=== PATIENT | male | born 1965 | race Hispanic/Latino ===

== ENCOUNTER 2019-08-15 02:06 | Inpatient (IN) | payer SELFPAY ==
[2019-08-15] MEDS ORDERED: Fentanyl 100 MCG/2 ML VIAL ONE ×2 (02:46→16:09)
[2019-08-15] MEDS ORDERED: Ondansetron PF 4 MG/2 ML Vial ONE ×2 (02:47→21:24)
[2019-08-15 02:53] LABS: #Eosinphils 0.2 thou/uL (0.0-0.7); #Lymphocytes 1.2 thou/uL (1.20-3.40); #Monocytes 0.5 thou/uL (0.11-0.59); #Neutrophils 3.8 thou/uL (1.40-6.50); %Basophils 0.6 % (0.0-1.0); %Eosinophils 3.2 % (0.0-10.0); %Lymphocytes 20.6 % (21.0-51.0); %Monocytes 8.7 % (0.0-10.0); %Neutrophils 66.9 % (42.0-75.0); Hemoglobin 13.7 g/dL (14.0-18.0); Mean Corpuscular HGB CONC 33.7 g/dL (32.0-36.0); Mean Corpuscular Hemoglobin 29.3 pg (27.0-31.0); Mean Platelet Volume 8.8 fL (7.4-10.4); Platelet Count 97 thou/uL (130-400); Red Blood Cell (RBC) Count 4.66 mill/uL (4.70-6.10); White Blood Cell (WBC) Count 5.7 thou/uL (4.8-10.8)
[2019-08-15 03:13] LABS: ALT (SGPT) 196 U/L (8-55); AST (SGOT) 193 U/L (5-34); Albumin 3.4 g/dL (3.5-5.0); Alkaline Phosphatase 141 U/L (40-150); Anion Gap 10 mmol/L (10-20); BUN (Urea Nitrogen) 14 mg/dL (8.4-25.7); Bilirubin, Total 4.3 mg/dL (0.2-1.2); Calc. Creatinine Clearance 0 mL/min (70-130); Carbon Dioxide 26 mmol/L (22-29); Chloride 103 mmol/L (98-107); Estimated GFR-MDRD Greater than 90; Globulin 4.8 g/dL (2.4-3.5); Glucose 145 mg/dL (70-105); Lipase 46 U/L (8-78); Potassium 3.6 mmol/L (3.5-5.1); Protein, Total 8.2 g/dL (6.0-8.3); Sodium 135 mmol/L (136-145)
[2019-08-15] MEDS ORDERED: Cefepime 2 GM VIAL ONE (03:36)
[2019-08-15] MEDS ORDERED: Sodium Chloride 0.9% 100 ML ONE (03:39)
[2019-08-15] MEDS ORDERED: Ondansetron PF 4 MG/2 ML Vial IVP PRN ×2 (04:25→17:04)
[2019-08-15] MEDS ORDERED: Ondansetron ODT 4 MG TAB SL PRN (04:25)
[2019-08-15 04:31] VITALS: BMI 30.7
[2019-08-15] MEDS: Lactated Ringer's 1,000 ML IV SCH ×3 (04:58→19:26)
[2019-08-15] MEDS: Fentanyl 100 MCG/2 ML VIAL SLOW IVP PRN ×3 (05:01→10:33)
--- NOTE | 2019-08-15 07:42 | ULT ---
PRELIMINARY REPORT/[facility]/EMERGENCY AFTER HOURS PROCEDURE PROCEDURE INFORMATION: Exam: US Abdomen Limited, Right Upper Quadrant Exam date and time: 08/15/2019 3:03 AM Clinical history: 53 years old, male; Nausea and vomiting; Abdominal pain; Epigastric TECHNIQUE: Imaging protocol: Real-time ultrasound of the abdomen with image documentation. Examination was focused on the right upper quadrant. COMPARISON: No relevant prior studies available. FINDINGS: Liver: Hepatic steatosis. Gallbladder: Cholelithiasis and gallbladder sludge. Gallbladder is distended. Portions of the gallbladder wall appeared mildly thickened. Suggestion of trace pericholecystic fluid. Sonographic Elliott's sign reported as positive. Common bile duct: Common bile duct is at the upper limits of normal to mildly dilated for patient age at 7.6 mm. Pancreas: Visualized pancreas is unremarkable. Right kidney: Normal. No mass. No hydronephrosis. IMPRESSION: 1. Cholelithiasis and gallbladder sludge. Distended gallbladder with mild wall thickening and trace pericholecystic fluid in the setting a positive sonographic Elliott sign, compatible with acute cholecystitis. 2. Common bile duct is at the upper limits of normal to mildly dilated for patient age at 7.6 mm. Thank you for allowing us to participate in the care of your patient. Dictated and Authenticated by: Sam Adams MD 08/15/2019 3:34 AM Central Time ([place] & [place]) FINAL REPORT SONOGRAM RIGHT UPPER QUADRANT PERFORMED ON AN EMERGENCY BASIS: Date: 08/15/19 Time: 0305 hours HISTORY: Nausea and vomiting. Right upper quadrant pain. FINDINGS: Agree with the preliminary report by Dr. Adams from [facility]. The overdistended gallbladder contains m ultiple shadowing stones. Small amount of pericholecystic fluid. Findings overall are evidence of acute cholecystitis. Common bile duct also mildly dilated. Code QA. Transcribed Date/Time: 08/15/2019 7:50 AM
[2019-08-15] MEDS ORDERED: PROVENTIL INHALER 6.7 G (200 INHALATIONS) INH PRN (09:59)
[2019-08-15 11:16] LABS: ALT (SGPT) 188 U/L (8-55); AST (SGOT) 178 U/L (5-34); Albumin 3.2 g/dL (3.5-5.0); Alkaline Phosphatase 149 U/L (40-150); Bilirubin, Direct 3.7 mg/dL (0.1-0.3); Bilirubin, Total 4.9 mg/dL (0.2-1.2); Protein, Total 7.7 g/dL (6.0-8.3)
[2019-08-15] MEDS: Cefepime 2 GM in Sodium Chloride 0.9% 100 ML IVPB SCH ×2 (12:27→23:02)
--- NOTE | 2019-08-15 12:37 | CON ---
DATE OF CONSULTATION: 08/15/2019 REASON FOR CONSULTATION: Elevated liver enzymes and dilated bile duct with gallstones. HISTORY OF PRESENT ILLNESS: Mr. Bolanos is a 53-year-old gentleman, who states he became ill yesterday morning with right upper quadrant pain that something he has never had in the past. It was nonradiating, associated with some nausea, vomiting, and chills, but no overt fever. He ultimately came to the emergency room at around 3 this morning and had an ultrasound that showed gallbladder sludge, gallstones, and a 7 mm bile duct. He states the pain is persistent in the right upper quadrant. He denies any prior history of liver disease. He does drink about a 6-pack of beer per day. Dr. Brumfield informed me that he possibly had a prior history of hepatitis C and seen Dr. Romero, but he does not recall that. He reports he has no other medical problems. PAST MEDICAL HISTORY: None per the patient. However, review of the medical records indicate in 2014, he was seen for elevated liver enzymes and cholelithiasis as well and in this hospital for cellulitis. At that time, he was found to have fatty liver and hepatitis C genotype 2 with positive viral load. History of cellulitis left leg in 2013. History of knee surgery, scope in the past. Asthma. ALLERGIES: PENICILLIN. MEDICATIONS: At home, ProAir. Medications here, he has received Zofran, fentanyl, normal saline 1 L, and cefepime in the emergency room 2 g. Present medications here, albuterol p.r.n. normal saline 100 an hour, Zofran p.r.n. SOCIAL HISTORY: He drinks alcohol 6-pack per day. He used to do cocaine many years ago, not now. Does smoke. FAMILY HISTORY: Negative for liver disease. Negative for colorectal cancer. REVIEW OF SYSTEMS: Negative for chest pain, shortness of breath, dyspnea on exertion, cardiac disease. PHYSICAL EXAMINATION: VITAL SIGNS: Temperature is 98.7. He has been afebrile since admission. Pulse 62, blood pressure 163/95. GENERAL: He is mildly icteric. LUNGS: Clear. HEART: Regular rate rhythm without murmurs. ABDOMEN: Soft. There is tenderness in right upper quadrant. There is fullness in the right upper quadrant and a large liver. There is no shifting dullness or fluid wave. EXTREMITIES: No clubbing, cyanosis, or edema. SKIN: Without stigmata of chronic liver disease such as palmar erythema or spider angiomata. LABORATORY STUDIES: Sodium 135, potassium 3.6, BUN and creatinine 14 and 0.8, glucose 145. Bilirubin is 4.3. AST and ALT are 193 and 196. They are very similar to previous admissions. Albumin is 4.8, globulin is 0.7, total protein is 8.2, troponin is 0.032. Lactic acid 1, calcium 9, lipase 46. White count 5.6, hemoglobin 13.7, platelet count 97. INR 1.1. ASSESSMENT: 1. Possible choledocholithiasis. He has ultrasound with a 7 mm bile duct by report, previously noted cholelithiasis. 2. Enlarged liver with hepatitis C. He has a low platelet count. He probably has some portal hypertension. He could have early cirrhosis. RECOMMENDATIONS: 1. We would continue antibiotics for possible cholelithiasis, for a possible mild cholecystitis. 2. The patient needs to get an alpha-fetoprotein done. 3. We will repeat liver function tests later today. If the patient's LFTs are coming down, he can have a lap gretel. If not, he is going to need an ERCP first. Job ID: [id number]
[2019-08-15] MEDS ORDERED: Iothalamate Meglumine 60% 50 ML VIAL FS ONE (14:34)
[2019-08-15] MEDS ORDERED: Indomethacin 50 MG SUPP ONE (14:41)
[2019-08-15] MEDS ORDERED: Promethazine HCl 25 MG/ML VIAL IM PRN ×2 (17:04→17:12)
[2019-08-15] MEDS ORDERED: Calcium Carbonate 500 MG ChewTAB PO PRN (17:04)
[2019-08-15] MEDS ORDERED: Dextrose 50% Abboject 50 ML SYRINGE SLOW IVP PRN (17:04)
[2019-08-15] MEDS ORDERED: hydrALAZINE 20 MG/ML VIAL SLOW IVP PRN (17:04)
[2019-08-15] MEDS ORDERED: Dextrose 5% in Water 1,000 ML IV PRN (17:04)
[2019-08-15] MEDS ORDERED: Mag-Al 1200 mg/1200 mg/30 ML UDCUP PO PRN (17:04)
[2019-08-15] MEDS ORDERED: PACU-Morphine 4MG/ML VIAL SLOW IVP PRN (17:12)
[2019-08-15] MEDS ORDERED: Promethazine HCl 25 MG/ML VIAL SLOW IVP PRN (17:12)
[2019-08-15] MEDS ORDERED: HYDROmorphone 2 MG/ML VIAL SLOW IVP PRN (17:12)
[2019-08-15] MEDS ORDERED: Ondansetron HCl/PF 4 MG/2 ML Vial IVP PRN (17:12)
--- NOTE | 2019-08-15 17:13 | RAD ---
EXAM: INTRAOPERATIVE FLUOROSCOPY: 08/15/19 HISTORY: ERCP. FINDINGS: Four intraoperative fluoroscopic views demonstrate retrograde opacification of the common bile duct a nd intrahepatic biliary system. No persistent filling defect. No evidence of ductal dilatation. IMPRESSION: Intraoperative fluoroscopy as above. POS: UMBERTO
[2019-08-15] MEDS ORDERED: Famotidine 20 MG TAB PO SCH (21:00)
[2019-08-15] MEDS ORDERED: Famotidine/PF 20 mg/2ml Vial SLOW IVP SCH (21:00)
[2019-08-15] MEDS ORDERED: Dexamethasone 20 MG/5 ML VIAL ONE (21:24)
[2019-08-15] MEDS ORDERED: PHENYLEPHRINE-NS 100 MCG/ML 10 ML SYRINGE ONE (21:24)
[2019-08-15] MEDS ORDERED: Rocuronium Bromide 10 MG/ML (10ML VIAL) ONE (21:24)
[2019-08-15] MEDS ORDERED: Lidocaine 1% PF 5 ML VIAL ONE (21:24)
[2019-08-15] MEDS ORDERED: ePHEDrine 50 MG/ML VIAL ONE (21:24)
[2019-08-15] MEDS ORDERED: Glycopyrrolate 0.2 MG/ML 5 ML SYRINGE ONE (21:24)
[2019-08-15] MEDS ORDERED: PROPOFOL 200 MG/20 ML VIAL ONE (21:24)
[2019-08-15] MEDS: Multivitamins, Adult 10 ML, Folic Acid 1 MG, Thiamine HCl 100 MG in Dextrose 5 %-0.45 %... IV SCH (21:25)
[2019-08-15] MEDS: Pantoprazole 40 MG VIAL IVP SCH (21:25)
[2019-08-15] MEDS: Morphine 2 MG/ML SYRINGE SLOW IVP PRN (21:37)
--- NOTE | 2019-08-15 22:28 | HP ---
CHIEF COMPLAINT: Abdominal pain, abnormal liver function tests, dilated bile duct. HISTORY OF PRESENT ILLNESS: Mr. Bolanos is a 53-year-old male. He became ill yesterday morning and presented to the hospital after midnight last night. He underwent evaluation in the emergency room with laboratory and radiologic studies. His CBC was normal with a white blood cell count of 5.7 and hemoglobin of 13.7. His platelet count was slightly low at 97. Chemistry profile revealed normal electrolytes, however, his bilirubin was elevated at 4.3, and his transaminases were 193 and 196. Alkaline phosphatase was normal. Lipase was normal. Albumin was depressed at 3.4. Gallbladder ultrasound was obtained revealing cholelithiasis with mild thickening of gallbladder wall. Common bile duct was felt to be dilated between 7 and 8 mm. He was admitted to my service. Because of the potential for choledocholithiasis, Gastroenterology was consulted. It is noted from review of his previous records that he was admitted to this facility in 2014 with cellulitis of his ankle. At that time, it was noted that he had transaminitis. He underwent serology testing and was found to have hepatitis C, who is hepatitis C positive. He also had gallbladder ultrasound that showed cholelithiasis at that time. He was seen in consultation by Dr. Romero. He was not felt to have any symptoms associated with his gallbladder and outpatient followup with Dr. Romero was recommended for treatment of his hepatitis C. He apparently never followed up with Dr. Romero. His mother is at bedside and insists that he was treated for hepatitis C in [place], however, the patient has no recollection of this. It was recommended by Dr. Romero in 2015 that the patient to abstain from all alcohol. It is noted that the patient still drinks a six pack of beer per day. PAST MEDICAL HISTORY: Significant for hepatitis C and cholelithiasis, as well as history of cellulitis of his ankle. PAST SURGICAL HISTORY: Left knee arthroscopy. MEDICATIONS: ProAir inhaler. ALLERGIES: PENICILLIN. PERSONAL AND SOCIAL HISTORY: He lives with his parents. He drinks a six-pack of beer per day. He states that he formally did use cocaine, but no longer does. He smokes about a half pack per day of cigarettes. He is not , but does have two children. 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 REVIEW OF SYSTEMS: Otherwise unremarkable. FAMILY HISTORY: Noncontributory. PHYSICAL EXAMINATION: VITAL SIGNS: His temperature is 98.0, pulse 78, blood pressure 153/82. GENERAL: He is a well-developed, well-nourished male. He is about 6 feet 1 inch tall and weighs 230 pounds. He is alert and oriented x3. HEAD, EYES, EARS, NOSE, AND THROAT: Unremarkable. NECK: Supple. LUNGS: Clear to auscultation throughout. CARDIAC: Regular rate and rhythm without murmur. ABDOMEN: Moderately obese. It is soft. He has tenderness in the right upper quadrant to palpation. EXTREMITIES: Unremarkable. LABORATORY DATA: As mentioned, his liver function tests were elevated upon arrival. Review shows that his transaminases were in the 100s back in 2014 as well. His bilirubin however was previously normal. It is noted that his bilirubin today went up from 4.3 at 2:30 this morning up to 4.9 at 10:30 this morning. ASSESSMENT: The patient with cholelithiasis and possible choledocholithiasis. Dr. Bob has already seen the patient and is proceeding with ERCP. Following this, he will require a laparoscopic cholecystectomy. I will tentatively plan to proceed with this tomorrow. I have discussed the operation in detail with the patient, as well as potential risks. This could be additionally risky because of his fatty liver and possible cirrhosis related both to his alcoholism and his hepatitis C. I have discussed this with the patient, who understands and agrees to proceed. Job ID: [id number]
[2019-08-16] MEDS: Lactated Ringer's 1,000 ML IV SCH ×2 (05:08→18:45)
[2019-08-16 05:27] LABS: #Lymphocytes 0.8 thou/uL (1.20-3.40); #Monocytes 0.2 thou/uL (0.11-0.59); #Neutrophils 2.7 thou/uL (1.40-6.50); %Eosinophils 0.4 % (0.0-10.0); %Lymphocytes 21.8 % (21.0-51.0); %Monocytes 6.2 % (0.0-10.0); %Neutrophils 71.6 % (42.0-75.0); Hemoglobin 12.4 g/dL (14.0-18.0); Mean Corpuscular HGB CONC 33.3 g/dL (32.0-36.0); Mean Corpuscular Hemoglobin 29.2 pg (27.0-31.0); Mean Corpuscular Volume 87.6 fL (78.0-98.0); Mean Platelet Volume 9.1 fL (7.4-10.4); Platelet Count 89 thou/uL (130-400); RBC Distribution Width 12.8 % (11.5-14.5); Red Blood Cell (RBC) Count 4.26 mill/uL (4.70-6.10); White Blood Cell (WBC) Count 3.8 thou/uL (4.8-10.8)
[2019-08-16 06:04] LABS: ALT (SGPT) 162 U/L (8-55); AST (SGOT) 139 U/L (5-34); Albumin 2.9 g/dL (3.5-5.0); Alkaline Phosphatase 150 U/L (40-110); Anion Gap 8 mmol/L (10-20); BUN (Urea Nitrogen) 11 mg/dL (8.4-25.7); Calc. Creatinine Clearance 155 mL/min (70-130); Calcium 8.5 mg/dL (7.8-10.44); Carbon Dioxide 25 mmol/L (22-29); Chloride 102 mmol/L (98-107); Estimated GFR-MDRD Greater than 90; Globulin 4.4 g/dL (2.4-3.5); Glucose 123 mg/dL (70-105); Lipase 65 U/L (8-78); Potassium 4.3 mmol/L (3.5-5.1); Protein, Total 7.3 g/dL (6.0-8.3); Sodium 131 mmol/L (136-145)
--- NOTE | 2019-08-16 08:36 | OP ---
DATE OF PROCEDURE: 08/15/2019 PROCEDURES PERFORMED: Endoscopic retrograde cholangiopancreatography with sphincterotomy and esophagogastroduodenoscopy with control of hemorrhage from a duodenal ulcer separate from the above noted procedure. PREPROCEDURE DIAGNOSES: 1. Elevated liver enzymes, dilated bile duct on ultrasound and gallstones concerning for choledocholithiasis. 2. Right upper quadrant pain. 3. History of alcohol abuse. 4. Prior history of hepatitis C. 5. New elevation of bilirubin, not noted on previous evaluations. POSTPROCEDURE DIAGNOSES: 1. Duodenal ulcer was noted in the pyloric channel on the anterior wall of the pyloric channel bulb junction. There was a visible vessel with active bleeding. This was cauterized with 7-Maldivian heater probe and bleeding was controlled. On talking with the family after the procedure, they noted that he actually had been throwing up some blood recently, which he denied actually on presentation to 3 different physicians. 2. Ampulla appeared normal. Cholangiogram showed a normal 6-mm bile duct with no filling defects. 3. Intrahepatic ductal tree is sparse and there is a paucity of radicles consistent with some chronic liver disease. 4. With no overt common bile duct stone, it is either possible he has already passed one or that his elevated bilirubin and LFTs are related more to alcoholic liver disease than biliary tract disease. ANESTHESIA: General anesthesia. The patient is on cefepime and received penicillin prophylaxis. RECOMMENDATIONS: 1. Hold off lap gretel tomorrow. 2. Follow LFTs. 3. Obtain HIDA scan. This may be incomplete secondary to sphincterotomy. Start IV PPI. Start banana bag and monitor. My fear is that if he has alcoholic hepatitis, laparoscopic cholecystectomy cause hepatic decompensation and failure. DESCRIPTION OF PROCEDURE: The patient was informed of the risks, benefits, and possible complications of endoscopy including perforation, reaction to medication, and aspiration. Informed consent was obtained. The patient was brought to endoscopy suite, where he was sedated in gradual fashion. Once he was comfortable, he was intubated. He was placed in prone position on the fluoroscopy table. The side-viewing duodenoscope was advanced to the esophagus, stomach, and the duodenum and duodenal bulb. There was some blood noted and a defect consistent with an ulcer. We passed this as there was no overt severe hemorrhage and performed ERCP intubating the ampulla, and with the guidewire twice in the pancreatic duct by no injections, we then redirected and cannulated the common bile duct with a wire. Cholangiogram revealed no filling defects. There was a paucity of intrahepatic ducts consistent with pruning and probable cirrhosis or severe liver disease. No filling defects were noted, although there was concern for possible small 1 distally. Sphincterotomy was performed. The duct was swept 3 times, no stones being removed, there was good hemostasis from the sphincterotomy. There was no filling defects noted. There was no stone seen coming through and occlusion cholangiogram was negative. Attempts to fill the gallbladder were unsuccessful. The scope was then removed and placed a forward viewing scope, guided in the anterior part of the duodenal bulb, there was also a visible vessel. This was cauterized with 10-Maldivian heater probe and ablated. There were no other ulcers or lesions in the stomach. Retroflexed views revealed no evidence of varices. The esophagus showed no evidence of varices or other lesions. There was mild portal hypertensive gastropathy. The scope was removed. The patient tolerated procedure well with no complications. The above findings were discussed with Dr. Brumfield and the patient's family, and appropriate orders were made. We are going to hold off on the lap gretel for now and observe. Job ID: [id number]
[2019-08-16] MEDS ORDERED: diphenhydrAMINE 50 MG/ML VIAL ONE ×2 (09:33→09:40)
[2019-08-16] MEDS: Pantoprazole 40 MG VIAL IVP SCH (09:42)
[2019-08-16 10:00] LABS: INR-International Normal Ratio 1.2; Prothrombin Time 14.7 SEC (12.0-14.7)
--- NOTE | 2019-08-16 10:01 | MRI ---
MRI OF THE ABDOMEN WITHOUT AND WITH CONTRAST: Date: 08/16/19 COMPARISON: Gallbladder ultrasound dated 08/15/19 and ERCP dated 08/15/19. HISTORY: Cholelithiasis. Elevated AFP and LFTs. Right upper quadrant abdominal pain. TECHNIQUE: Multiplanar, multisequence MR images were obtained of the abdomen without and with contrast. FINDINGS: There are filling defects in the dependent gallbladder which likely represent gallstones. There is fl uid surrounding the gallbladder. There is low signal intensity in the nondependent gallbladder which may represent air within the gallbladder. These findings are consistent with acute cholecystitis. There is a wedge-shaped area of high T2 signal in the liver measuring approximately 7.2 cm in greates t dimension. This is superior to the gallbladder and extends up to the dome. In the center of this ar ea of high T2 signal, there is a mass which also demonstrates high T2 signal measuring 3.5 cm in size . After administration of contrast, this mass appears to demonstrate enhancement with washout on francis yed phase images. There are small subcentimeter foci of high T2 signal in the bilateral kidneys consistent with simple cysts. The adrenal glands, spleen, and pancreas are unremarkable. No abdominal adenopathy is seen. IMPRESSION: 1. Cholelithiasis with findings concerning for acute cholecystitis. 2. There is a mass in the anterior liver near the dome which demonstrates washout and is concerning for hepatocellular carcinoma. 3. Bilateral renal cysts. CODE T. POS: TPC
[2019-08-16] MEDS ORDERED: Fentanyl 100 MCG/2 ML VIAL ONE (11:20)
[2019-08-16] MEDS: Cefepime 2 GM in Sodium Chloride 0.9% 100 ML IVPB SCH ×2 (11:48→23:09)
--- NOTE | 2019-08-16 17:09 | NM ---
HEPATOBILIARY SCAN: 08/16/19 COMPARISON: MRI abdomen 08/16/19. HISTORY: Evaluate for acute cholecystitis. Findings are suspicious for acute cholecystitis on MRI and ultrasound. TECHNIQUE: A hepatobiliary scan was performed after administration of 4.9 millicuries of technetium 99m Mebrofen in. FINDINGS: Prompt uptake of the radiopharmaceutical by the liver is seen. There is a photopenic region in the mi d portion of the liver which may correspond to the abnormality on MRI. Biliary and gallbladder activ ity within 20 minutes. Bowel activity is seen within 30 minutes. IMPRESSION: 1. No evidence of acute cholecystitis. 2. Area of photopenia in the liver may correspond to the MRI abnormality. POS: TPC
[2019-08-16] MEDS: Multivitamins, Adult 10 ML, Folic Acid 1 MG, Thiamine HCl 100 MG in Dextrose 5 %-0.45 %... IV SCH (18:46)
--- NOTE | 2019-08-16 18:47 | PRG ---
DATE OF SERVICE: 08/16/2019 SUBJECTIVE: Mr. Bolanos says he is feeling a lot better today. Abdominal discomfort is minimal. No nausea. He has remained n.p.o. HIDA scan showed no abnormality of gallbladder filling. MRI unfortunately does appear to confirm a single focus of hepatocellular carcinoma. I had a long discussion with the patient about this today. OBJECTIVE: VITAL SIGNS: Temperature 98.2, pulse 71, blood pressure 130/82, 96% oxygen saturation on room air. GENERAL: No acute distress. HEART: Regular rate and rhythm. LUNGS: Clear to auscultation bilaterally. ABDOMEN: Bowel sounds are present. Some mild tenderness to the epigastrium, right upper quadrant, but no guarding or rebound tenderness. EXTREMITIES: No peripheral edema. VESSELS: Radial pulses 2+ bilaterally. LABORATORY STUDIES: WBC 3.8, hemoglobin 12.4, platelets 89. INR is 1.2. Sodium 131, potassium 4.3, BUN 11, creatinine 0.83, total bilirubin down from 4.9 to 3.0, alkaline phosphatase is 150, AST down from 178 to 139, ALT down from 188 to 162. Lipase only 65. AST is elevated to 763. IMAGING STUDIES: HIDA scan showed no evidence of acute cholecystitis. There is an area of photopenia in the liver corresponding to his MRI abnormality. MRI of the abdomen from earlier today demonstrates a mass in the anterior liver near the dome which demonstrates washout, concerning for hepatocellular carcinoma. It is wedge-shaped area measuring 7.2 cm in greatest dimension, but in the center of this area there is a mass which also demonstrates high T2 signal measuring 3.5 cm in size. There is enhancement with washout on delayed phase images. ASSESSMENT/PLAN: 1. Hepatocellular carcinoma, new diagnosis based on elevated AFP and characteristic MRI findings. I discussed with the patient that this finding is likely incidental to his presentation, but is certainly significant and needs to be followed up. The MRI findings and AFP level are enough to confirm the diagnosis. Liver biopsy should not be needed. This HCC arises in the background of cirrhosis, which appears to be secondary to chronic hepatitis C and alcohol abuse. The cirrhosis is otherwise fairly well compensated. We will consult Oncology for their opinion and assistance in management. I discussed with the patient that he would probably best be served at a tertiary center that performs liver transplantation, for multi-disciplinary care including interventional radiology. This could be set up on an outpatient basis. One potential barrier is the patient's uninsured status, though evidently his insurance with his job kicks in next month. He lives in [place], but says he would probably like to be referred to a center in the [place] area. 2. History of hepatitis C. He had genotype two diagnosed back in 2014. He reports having been treated in the [place] with antiviral therapy for several months, but unable to follow up after that. HCV RNA level is pending, which will hopefully confirm sustained virologic response. 3. Alcohol abuse. This has been ongoing. I strongly advised the patient that he needs to completely quit all alcohol. This is likely the reason for this severity of his LFT elevation, which is significantly improved over the past day. 4. Duodenal ulcer. This was demonstrated on ERCP with Dr. Bob yesterday. The patient is going to need to continue pantoprazole 40 mg twice daily for at least the next 2-3 months, then back off to once daily dosing thereafter. 5. Cholelithiasis. The patient's HIDA scan does not demonstrate evidence of acute cholecystitis. Possibly the patient's pain presentation had more to do with his duodenal ulcer. Dr. Brumfield is following. If the patient continues to do well symptomatically through tomorrow, LFTs have not worsened, and satisfactory plan for oncology followup arranged, could potentially be discharged home tomorrow from a GI perspective. Please call anytime with questions or concerns. Job ID: [id number]
[2019-08-16] MEDS: Morphine 2 MG/ML SYRINGE SLOW IVP PRN (18:53)
[2019-08-17] MEDS: Lactated Ringer's 1,000 ML IV SCH ×2 (01:54→11:32)
[2019-08-17] MEDS: Morphine 2 MG/ML SYRINGE SLOW IVP PRN ×3 (01:56→15:03)
--- NOTE | 2019-08-17 11:43 | PRG ---
DATE OF SERVICE: 08/17/2019 SUBJECTIVE: Mr. Bolanos is hospital day #2. He underwent ERCP per Dr. Bob yesterday revealing no choledocholithiasis. This morning (08/15), he had an MRI that revealed findings consistent with hepatocellular carcinoma. His AFP is very elevated at 763. Today, he denies any abdominal pain. He is hungry more than anything else. Labs from today reveal that his bilirubin has dropped from 4.9 down to 3.0. Transaminases have dropped a little bit as well. Lipase is normal. His CBC shows his white blood cell count has dropped from 5.7 down to 3.8. His differential is unremarkable and his platelet count has dropped from 97 down to 89. PHYSICAL EXAMINATION: VITAL SIGNS: He is afebrile. Pulse is 80 and blood pressure is 130/82. LUNGS: Clear to auscultation. ABDOMEN: Soft with no focus of tenderness in any location. ASSESSMENT: The patient with presentation with elevated bilirubin level and cholelithiasis and known hepatitis C and known alcoholism, who now has findings consistent with hepatocellular carcinoma. I will order a HIDA scan for today (08/16). If this is negative for cholecystitis, then I will probably defer his cholecystectomy at this time. I have discussed his case in detail with Dr. Romero, who is assuming it from a GI standpoint. Job ID: [id number]
[2019-08-17] MEDS: Cefepime 2 GM in Sodium Chloride 0.9% 100 ML IVPB SCH (11:49)
--- NOTE | 2019-08-17 14:09 | CON ---
DATE OF CONSULTATION: REASON FOR CONSULT: Hepatocellular carcinoma. HISTORY OF PRESENT ILLNESS: Mr. Bolanos is a 53-year-old male with a history of hepatitis C and alcohol use, who presented to the emergency room with complaints of abdominal pain. He was noted to have a bilirubin elevated at 4.3. He had a gallbladder ultrasound done, revealed cholelithiasis. He underwent ERCP with improvement of his bilirubin currently at 3. He had an abdominal MRI performed, which showed a mass measuring 3.5 cm in the liver. An AFP was elevated at 763 diagnostic for hepatocellular carcinoma. The patient denies any complaints at this time. He is hungry. His abdominal pain is controlled. PAST MEDICAL HISTORY: 1. Hepatitis C. 2. Cholelithiasis. 3. Cellulitis. PAST SURGICAL HISTORY: Left knee arthroscopy. HOME MEDICATIONS: Inhaler. ALLERGIES: TO PENICILLIN. FAMILY HISTORY: No known history of liver cancer. SOCIAL HISTORY: Single, lives with his parents. Works in [place] in the [employer]. Six-pack of beer daily. Half pack of cigarettes daily. REVIEW OF SYSTEMS: A 10-point review of systems is negative except for noted in HPI. PHYSICAL EXAMINATION: VITAL SIGNS: Temperature is 98.2, pulse is 78, respiratory rate 16, BP is 166/96. He is 99% on room air. GENERAL: This is well-developed, well-nourished male, in no acute distress. HEENT: Normocephalic and atraumatic. Pupils are equal and reactive to light. Sclerae mildly icteric. NECK: Supple. CV: Regular rate and rhythm. LUNGS: Clear. ABDOMEN: Soft and nontender. Bowel sounds are positive. EXTREMITIES: No clubbing or cyanosis. SKIN: No rash. HEMATOLOGIC: No petechiae or purpura. NEUROLOGIC: Nonfocal. PERTINENT LABS AND X-RAYS: Current WBCs are 3.8, hemoglobin 12.4, hematocrit 37.4, platelet count is 89,000, he has 71% neutrophils and 21% lymphocytes. PT is 14.7, INR is 1.2, and PTT is 34. Sodium is 131, potassium 4.3, chloride 102, CO2 is 25, BUN is 11, creatinine 0.83, calcium is 8.5, bilirubin is 3, AST is 139, ALT is 162, alkaline phosphatase is 150, serum total protein is 7.3, albumin 2.9, globulin 4.4, AST is 763. Radiology per HPI. ASSESSMENT: Hepatocellular carcinoma. DISCUSSION: The patient's incidental findings on CT scan with the elevated AFP are consistent with primary liver cancer. There appears to be no evidence of any further disease on MRI. I would recommend referral to a liver specialist for discussion of treatment options. I believe Dr. Romero is working on getting him to Dr. Kim at [facility] in [place]. The patient was instructed to stop alcohol use and he can follow up with us for chemotherapy options if required. Thank you for the consult. Job ID: [id number]
--- NOTE | 2019-08-17 15:33 | PRG ---
DATE OF SERVICE: 08/17/2019 SUBJECTIVE: Mr. Bolanos is feeling a lot better. He is able to tolerate dinner last night and breakfast and lunch today, only minimal abdominal discomfort. No nausea or vomiting. He is up and to be able to go home today. OBJECTIVE: VITAL SIGNS: Temperature 98.2, pulse 78, blood pressure 166/96, 99% oxygen saturation on room air. GENERAL: No acute distress. HEART: Regular rate and rhythm. LUNGS: Clear to auscultation bilaterally. ABDOMEN: Soft. Nontender to palpation. EXTREMITIES: No peripheral edema. ASSESSMENT AND PLAN: 1. Hepatocellular carcinoma, new diagnosis based on elevated AFP and characteristic MRI findings. This HCC rises in the background of cirrhosis, which appears to be secondary to chronic hepatitis C and alcohol abuse. The cirrhosis is otherwise fairly well compensated. Appreciate Oncology opinion. We are going to start the process of getting him referred to a liver transplant center for further evaluation and treatment. We will attempt a referral to [facility]. Potential barrier may be the patient's current uninsured status. We will also have him follow up with me in the office in the next few weeks. 2. Cirrhosis. 3. Elevated liver function tests. We had a long discussion about his alcohol use. He feels very motivated to completely quit all alcohol use going forward. 4. Prior diagnosis of hepatitis C. Still awaiting HCV RNA titer, which will hopefully confirm sustained virologic response as he reports having undergone treatment in [place] within the past few years. 5. Duodenal ulcer. Upon discharge, the patient needs to continue on pantoprazole 40 mg twice daily for the foreseeable future. GI will sign off and plan for outpatient followup. Please call anytime with questions or concerns. Job ID: [id number]
[2019-08-17 16:16] VITALS: BP 151/101; TEMP 98.1
[2019-08-18 10:11] LABS: HCV log10 5.267 (.); Hep C PCR-Quant 185000 IU/mL (.)
--- NOTE | 2019-08-18 10:49 | PQF ---
RAMONA WALDRON MD [id number] CLINICAL DOCUMENTATION CLARIFICATION FORM: POST DISCHARGE Addendum to original discharge summary date: ____ Late entry note date: __ DATE: 08-18-2019 ATTN:Ramona Maxwell Please exercise your independent, professional judgment in responding to the clarification form. Clinical indicators are provided on the bottom of this form for your review Can you please specify the etiology of patients abdominal pain. Please check the appropriate box. [ ] doudenal ulcer [ ] Liver cell carcinoma [ ] cholelithiasis [ ] abdominal pain unspecified [ ] other diagnosis please specify: [ x ] unable to determine Present on Admission (POA): [ x ] Yes [ ] No [ ] Unable to determine For continuity of documentation, please document condition throughout progress notes and discharge summary. Thank You. CLINICAL INDICATORS: HP 08/[address] Brumfield abdominal pain, abnormal liver function test, dilated bile duct HP 08/[address] Brumfield galbladder ultrasound revealing cholelithiasis PN 08/[address] Romero hepatocellular carcinoma, new diagnosis based on elevated AFP and characteristics MRI findings PN 08/[address] Bob doudenal ulcer was noted in the pyloric channel on the anterior wall with active bleeding RISK FACTORS: HP 08/15 Dr. Brumfield- History hepatitis C Op note 08/15- Portal HTN TREATMENTS: PN 08/17- Counseling to stop alcohol use HP -Gastroenterology consult Imaging 07/15- abdominal ultrasound Imaging 07/16- MRI abdomen 08/15 op note- ERCP with EGD and control of bleeding (This form is maintained as a part of the permanent medical record) 2014 [employer]. All Rights Reserved [email or web address] [not provided] This patient had all of the issues mentioned above. Unable to determine what caused his pain on admission. The only diagnosis on admission was cholelithiasis. the ulcer and cancer were found during the course of his hospitalization. RYDER
--- NOTE | 2019-08-18 14:21 | DIS ---
DATE OF ADMISSION: 08/15/2019 DATE OF DISCHARGE: 08/17/2019 ADMISSION DIAGNOSIS: Cholelithiasis with suspected cholecystitis with possible choledocholithiasis. DISCHARGE DIAGNOSES: Cholelithiasis with probable cirrhosis/portal hypertension, new diagnosis of hepatocellular carcinoma, and new diagnosis of duodenal ulcer, without evidence of choledocholithiasis. OPERATIONS/PROCEDURES PERFORMED: ERCP per Dr. Bob on August 15. ADMISSION HISTORY: The patient is a 53-year-old male. He had actually presented to the hospital in 2014 for an unrelated problem and at that time was recognized to have hepatitis C. He never followed up with his lay out helper here and he believes he followed up with a lay out helper in either [place] or the [place], where it is possible that he underwent treatment for his hepatitis C, but it does not seem that anyone is sure about this. When he presented, he had abdominal pain and ultrasound revealed cholelithiasis. His admission studies revealed that his platelet count was low in the 90s and his transaminases were elevated in the 190s. His albumin was depressed at admission at 3.4. His coagulation profile was normal. He never had leukocytosis or left shift. His bilirubin was elevated at 4.3 and along with the sonographic finding of a slightly dilated common bile duct (8 mm), Gastroenterology consultation was obtained for ERCP. Dr. Bob performed his ERCP with a finding of nondilated duct with no evidence of choledocholithiasis. He incidentally found a duodenal ulcer, which he cauterized. Other laboratory studies during his admission revealed that he had a markedly elevated alpha-fetoprotein level of 763 (upper limit of normal is 9). Abdominal MRI was ordered per Dr. Bob revealing a 3.5 cm abnormality within the liver consistent with hepatocellular carcinoma, which would be consistent with his AFP elevation. As it was uncertain whether his gallbladder was source of his discomfort at all, I ordered a HIDA scan which was normal and showed gallbladder filling. It was decided at that time not to proceed with cholecystectomy. The patient was seen in consultation by Oncology. Parag Romero, the patient's lay out helper, was attempting to obtain consultation for the patient to be seen by a supervisor border department in [place] for consideration of treatment of the hepatocellular carcinoma versus transplantation. The patient had a history of drinking at least a 6-pack of beer per day for the past several years. At this point, it has been recommended that he have complete alcohol cessation. Further studies were being done to evaluate whether he still had a hepatitis viral load. Outpatient followup will be arranged with Dr. Romero and Oncology will see him as necessary depending upon whether chemotherapy is felt to be necessary at this point. The patient also understands that if he continues to have recurrent symptoms of right upper quadrant pain with his diagnosis of cholelithiasis, that he may require a laparoscopic cholecystectomy but at this point, that could potentially be deferred until further evaluation or treatment of his liver cancer occurs. Finally, it is uncertain what exactly was the cause of admission discomfort, whether it was his gallbladder or possibly his ulcer or possibly some manifestation of his cancer or underlying liver disease. I will be happy to see him in the future as needed. The patient was discharged home with a prescription for proton pump inhibitor. Job ID: [id number]
== END 2019-08-17 18:22 | disposition home or self-care (01) | DRG 347 ==
LOC: ERS 02:06 → SURG B 04:17
PROVIDERS: ADMIT Specialist; ATTEND Specialist
PROC: 0W3P7ZZ Control Bleeding in Gastrointestinal Tract, Via Natural or Artificial Opening (ICD-10-PCS; principal; 2019-08-15)
PROC: 0FJB8ZZ Inspection of Hepatobiliary Duct, Via Natural or Artificial Opening Endoscopic (ICD-10-PCS; 2019-08-15)
DX: R10.9 Unspecified abdominal pain (principal); K26.4 Chronic or unspecified duodenal ulcer with hemorrhage; K76.6 Portal hypertension; C22.0 Liver cell carcinoma; F10.288 Alcohol dependence with other alcohol-induced disorder; K80.20 Calculus of gallbladder without cholecystitis without obstruction; F17.210 Nicotine dependence, cigarettes, uncomplicated; J45.909 Unspecified asthma, uncomplicated; K31.89 Other diseases of stomach and duodenum; K70.30 Alcoholic cirrhosis of liver without ascites; B18.2 Chronic viral hepatitis C; Z88.0 Allergy status to penicillin
CPT/HCPCS: 36415; 74183; 74330; 76705; 78226; 80053; 82105; 83605; 83690; 84484; 85025; 85610; 85730; 87040; 87522; 93005; 96361; 96365; 96375; 99406; A9537; C9113; J0692; J1100; J1200; J1610; J1956; J2001; J2270; J2405; J2704; J3010; J3411; J3490; J7042

== ENCOUNTER 2020-01-04 17:47 | Emergency (ER) | payer SELFPAY ==
[2020-01-04 19:08] LABS: Hemoglobin 11.5 g/dL (14.0-18.0); Mean Corpuscular HGB CONC 32.8 g/dL (32.0-36.0); Mean Corpuscular Hemoglobin 28.4 pg (27.0-31.0); Mean Corpuscular Volume 86.5 fL (78.0-98.0); Mean Platelet Volume 8.7 fL (7.4-10.4); Platelet Count 204 thou/uL (130-400); RBC Distribution Width 16.1 % (11.5-14.5); Red Blood Cell (RBC) Count 4.06 mill/uL (4.70-6.10); White Blood Cell (WBC) Count 5.7 thou/uL (4.8-10.8)
[2020-01-04 19:28] LABS: Bilirubin Negative (Negative); Blood, Urine Negative (Negative); Clarity Clear (Clear); Glucose, Urine (Dipstick) Normal (Negative); Leukocyte Negative Leu/uL (Negative); Nitrite Negative (Negative); Protein, Urine (Dipstick) 10 mg/dL (Neg-Trace); Urobilinogen 3 mg/dL (Less than 2)
[2020-01-04 19:29] LABS: ALT (SGPT) 247 U/L (8-55); AST (SGOT) 220 U/L (5-34); Albumin 2.8 g/dL (3.5-5.0); Alkaline Phosphatase 150 U/L (40-110); Anion Gap 9 mmol/L (10-20); BUN (Urea Nitrogen) 10 mg/dL (8.4-25.7); Bilirubin, Total 0.8 mg/dL (0.2-1.2); Calc. Creatinine Clearance 0 mL/min (70-130); Calcium 8.1 mg/dL (7.8-10.44); Carbon Dioxide 22 mmol/L (22-29); Chloride 108 mmol/L (98-107); Estimated GFR-MDRD Greater than 90; Globulin 4.5 g/dL (2.4-3.5); Glucose 98 mg/dL (70-105); Potassium 3.9 mmol/L (3.5-5.1); Protein, Total 7.3 g/dL (6.0-8.3); Sodium 135 mmol/L (136-145)
[2020-01-04 19:33] LABS: Band 14 % (5-11); Lymphocytes 15 % (21-51); MDiff Complete? YES; Monocytes 19 % (0-10); Neutrophil 41 % (42-75); Platelet Morphology Comment Appears Adequate; Polychromasia SLIGHT = 2-3 cells (100X) (0-2/hpf); Reactive Lymphocytes 11 % (0-10)
--- NOTE | 2020-01-04 19:39 | RAD ---
Chest AP view INDICATION: History of bile duct cancer COMPARISON: June 07, 2009 FINDINGS: Lungs: The lungs are clear Cardiac silhouette: The cardiomediastinal silhouette appears within normal limits. Pulmonary vasculature: Normal Pleural spaces: No pleural effusion or pneumothorax is demonstrated. Upper abdomen: No abnormality seen. Osseous structures: No acute osseous abnormality. Additional findings: Right IJ chest wall port IMPRESSION: No acute cardiopulmonary abnormality.
[2020-01-04 19:47] LABS: INR-International Normal Ratio 1.1; PTT 33.2 SEC (22.9-36.1); Prothrombin Time 13.8 SEC (12.0-14.7)
--- NOTE | 2020-01-04 20:20 | RAD ---
FOUR VIEWS RIGHT ELBOW: 01/04/20 HISTORY: Right elbow pain after injury. COMPARISON: None. 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 There is a small osseous excrescence seen i nvolving the volar and medial aspect of the distal right humeral diaphysis most suggestive of an oste ochondroma. No acute fracture or dislocation is seen involving the right elbow. IMPRESSION: No acute osseous abnormality. POS: VERONICA
[2020-01-04] MEDS ORDERED: Acetaminophen/Codeine 30-300mg Tablet ONE (21:16)
== END 2020-01-04 21:20 | disposition home or self-care (01) ==
LOC: ERS 17:47
DX: R53.1 Weakness (principal); R10.811 Right upper quadrant abdominal tenderness; J45.909 Unspecified asthma, uncomplicated; F17.210 Nicotine dependence, cigarettes, uncomplicated; Z79.51 Long term (current) use of inhaled steroids
CPT/HCPCS: 36415; 71045; 80053; 81003; 83605; 83880; 85025; 85610; 85730; 87040

== ENCOUNTER 2020-02-17 17:00 | Inpatient (IN) | payer OTHER ==
[2020-02-17 18:03] LABS: #Lymphocytes 0.7 thou/uL (1.20-3.40); #Monocytes 0.3 thou/uL (0.11-0.59); #Neutrophils 1.4 thou/uL (1.40-6.50); %Basophils 0.5 % (0.0-1.0); %Eosinophils 0.4 % (0.0-10.0); %Lymphocytes 28.4 % (21.0-51.0); %Neutrophils 59.7 % (42.0-75.0); Hemoglobin 9.2 g/dL (14.0-18.0); Large Platelets SLIGHT; MDiff Complete? YES; Mean Corpuscular Hemoglobin 31.9 pg (27.0-31.0); Mean Corpuscular Volume 96.5 fL (78.0-98.0); Mean Platelet Volume 11.6 fL (7.4-10.4); Ovalocytes SLIGHT = 2-5 cells (100X) (0-1/hpf); Platelet Count 72 thou/uL (130-400); Platelet Morphology Comment Appears Decreased; Polychromasia MODERATE = 3-4 cells (100X) (0-2/hpf); RBC Distribution Width 16.8 % (11.5-14.5); Red Blood Cell (RBC) Count 2.88 mill/uL (4.70-6.10); Tear Drops SLIGHT = 2-5 cells (100X) (0-1/hpf); White Blood Cell (WBC) Count 2.3 thou/uL (4.8-10.8)
--- NOTE | 2020-02-17 18:06 | RAD ---
XR Chest 1 View Portable History: Abdominal pain and distention Comparison: Chest radiograph December 2019 Findings: There are patchy opacities both lower lobes. No pneumothorax. Nodular density left lung bas e. Cardiac silhouette and basal contours are similar. Impression: 1. Patchy opacities both lung bases may reflect early atypical pneumonia versus atelectasis. Repeat r adiograph with full inspiration recommended. 2. Nodular density left lung base. Nonemergent follow-up CT chest may be beneficial.
[2020-02-17] MEDS ORDERED: Morphine 4 MG/ML VIAL ONE (18:12)
[2020-02-17 18:16] LABS: ALT (SGPT) 141 U/L (8-55); AST (SGOT) 202 U/L (5-34); Alkaline Phosphatase 146 U/L (40-110); Anion Gap 13 mmol/L (10-20); BUN (Urea Nitrogen) 9 mg/dL (8.4-25.7); Bilirubin, Total 2.4 mg/dL (0.2-1.2); Calc. Creatinine Clearance 0 mL/min (70-130); Carbon Dioxide 19 mmol/L (22-29); Chloride 99 mmol/L (98-107); Estimated GFR-MDRD Greater than 90; Globulin 4.9 g/dL (2.4-3.5); Glucose 213 mg/dL (70-105); Lipase 46 U/L (8-78); Magnesium 1.4 mg/dL (1.6-2.6); Potassium 3.8 mmol/L (3.5-5.1); Protein, Total 6.9 g/dL (6.0-8.3); Sodium 127 mmol/L (136-145)
[2020-02-17] MEDS ORDERED: Ibuprofen 800 MG TAB ONE (18:42)
[2020-02-17 18:49] LABS: Bacteria/HPF None Seen HPF (None Seen); Bilirubin 1+ (Negative); Blood, Urine Trace (Negative); Clarity Clear (Clear); Glucose, Urine (Dipstick) Normal (Negative); Leukocyte Negative Leu/uL (Negative); Nitrite Negative (Negative); Protein, Urine (Dipstick) 30 mg/dL (Neg-Trace); Squamous Epithelial 0-3 HPF (0-3); Urobilinogen 12 mg/dL (Less than 2); WBC/HPF 0-3 HPF (0-3)
[2020-02-17] MEDS ORDERED: Cefepime 2 GM VIAL ONE (19:17)
[2020-02-17] MEDS ORDERED: Vancomycin 1.5 GRAM/300 ML BAG 1.5 GM in Premix Bag 1 BAG IVPB SCH (19:30)
--- NOTE | 2020-02-17 19:54 | RAD ---
XR Abdomen 2 View History: Progressive abdominal distention Comparison: None. Findings: Cholelithiasis is present. No dilated air-filled loops of large or small bowel. No free air is appreciated. Impression: 1. No evidence for bowel obstruction. 2. Cholelithiasis.
[2020-02-17] MEDS ORDERED: Ondansetron PF 4 MG/2 ML Vial ONE (19:55)
[2020-02-17 20:33] LABS: Lactic Acid 1.2 mmol/L (0.5-2.2)
[2020-02-18] MEDS ORDERED: Ondansetron PF 4 MG/2 ML Vial IVP PRN (00:07)
[2020-02-18] MEDS ORDERED: Acetaminophen 325 MG TAB PO PRN (00:07)
[2020-02-18] MEDS ORDERED: Magnesium 2 GM/50 ML 2 GM in Premix Bag 1 BAG IVPB SCH (00:45)
--- NOTE | 2020-02-18 01:07 | HP ---
CHIEF COMPLAINT: Abdominal pain and weakness. HISTORY OF PRESENT ILLNESS: Mr. Bolanos is a 54-year-old male with past medical history of cholangiocarcinoma, on chemotherapy, asthma, presents to the emergency room with abdominal pain and weakness. On workup in the emergency room, the patient was febrile with temperature as high as 103, and the patient was found to be leukopenic, neutropenic, hyponatremic, elevated LFTs and bilirubin, hypomagnesemic. Imaging studies showed patchy opacities in both lung bases, which may reflect early atypical pneumonia. Septic workup done in the ED. The patient also had elevated lactic acid, but after IV fluid hydration, repeat lactic acid is 1.2. The patient is started on empiric IV antibiotics. The patient is being admitted to the hospital for further management. PAST MEDICAL HISTORY: As mentioned above in the history of present illness. PAST SURGICAL HISTORY: 1. Knee surgery. 2. Tonsillectomy. SOCIAL HISTORY: The patient smokes cigarettes daily. He is denying alcohol use at this time. FAMILY HISTORY: Includes cancer and coronary artery disease. ALLERGIES: ALLERGIC TO PENICILLINS AND GADOLINIUM. HOME MEDICATIONS: Please see home medication reconciliation form for updated medications. REVIEW OF SYSTEMS: Review of 14 systems negative except what is mentioned in history of present illness. PHYSICAL EXAMINATION: GENERAL: The patient is awake, alert, in moderate distress. VITAL SIGNS: Temperature maximum 103, respiratory rate is 20, oxygen saturation 98%, blood pressure is 100/55. HEAD AND NECK: Normocephalic, atraumatic. NECK: Supple. CHEST: Decreased air entry bilaterally. HEART: S1, S2. Regular. ABDOMEN: Distended, epigastric tenderness. Bowel sounds present. NEUROLOGIC: Awake, alert, and oriented x3. No focal deficits. PSYCH: Unable to assess. EXTREMITIES: No clubbing, no cyanosis. GENITOURINARY: No suprapubic tenderness. No flank tenderness. LABORATORY DATA: Chest x-ray as mentioned above in history of present illness. Labs, magnesium is 1.4, sodium 127, glucose 213, and bilirubin 2.4. Sodium 127. WBC count is 2.3, platelet count 72, hemoglobin 9.2. Lactic acid 3.6, repeat lactic acid 1.2. ASSESSMENT AND PLAN: 1. Sepsis. 2. Pneumonia ?? 3. Neutropenia. 4. Immunocompromised, on chemotherapy. 5. Cholangiocarcinoma. 6. Hypomagnesemia. 7. Hyponatremia. 8. Transaminitis. 9. Hyperglycemia. 10. Asthma. PLAN: 1. Admit. 2. Septic workup including blood cultures. 3. Viral panel was done in the ED. 4. Isolation precautions. 5. Cautious IV fluid hydration, reassess in a.m. 6. Monitor and correct electrolytes. 7. Consider Oncology and Infectious Disease consultation in the a.m. 8. Reconcile home medications. 9. DVT prophylaxis as appropriate. 10. Expected length of stay, 2 midnights or more. Job ID: [id number]
[2020-02-18] MEDS: Sodium Chloride 0.9% 1,000 ML IV SCH ×3 (04:53→21:38)
[2020-02-18] MEDS: Azithromycin 500 MG in Sodium Chloride 0.9% 250 ML 250 ML IVPB SCH (04:53)
[2020-02-18 04:56] LABS: INR-International Normal Ratio 1.8; Prothrombin Time 20.4 SEC (12.0-14.7)
[2020-02-18 05:07] LABS: Band 20 % (5-11); Lymphocytes 23 % (21-51); MDiff Complete? YES; Mean Corpuscular HGB CONC 32.7 g/dL (32.0-36.0); Mean Corpuscular Hemoglobin 31.6 pg (27.0-31.0); Mean Corpuscular Volume 96.8 fL (78.0-98.0); Monocytes 16 % (0-10); Neutrophil 41 % (42-75); Platelet Count 66 thou/uL (130-400); Platelet Morphology Comment Appears Decreased; RBC Distribution Width 16.3 % (11.5-14.5); Red Blood Cell (RBC) Count 2.53 mill/uL (4.70-6.10); White Blood Cell (WBC) Count 3.1 thou/uL (4.8-10.8)
[2020-02-18 06:00] LABS: Actual Bicarbonate (HCO3a) 20.1 mEq/L (22-28); Base Excess (BEa) -4.8 mEq/L (-2.0 to +3.0); CO2 Tension 36.1 mmHg (35.0-45.0); Calcium, Ionized 1.06 mmol/L (1.12-1.30); Carboxyhemoglobin (COHb) 1.7 gm% (0.0-3.0); Hemoglobin (Hb) 9.7 g/dL (14.0-18.0); O2 Tension (PaO2) 91.8 mmHg (80.0-100.0); Potassium - ABG Lab 3.28 mmol/L (3.70-5.30); pH, Arterial 7.36 (7.35-7.45)
[2020-02-18] MEDS ORDERED: Vancomycin 1.5 GRAM/300 ML BAG 1.5 GM in Premix Bag 1 BAG IVPB SCH (06:00)
[2020-02-18 06:01] LABS: ALV-art Gradient 12.805 (0-20); Puncture Site RRA
[2020-02-18] MEDS: Cefepime 2 GM in Sodium Chloride 0.9% 100 ML IVPB SCH ×2 (08:46→20:32)
[2020-02-18] MEDS ORDERED: Vancomycin 1 GM in Premix Bag 1 BAG IVPB SCH (09:00)
[2020-02-18] MEDS ORDERED: Famotidine/PF 20 mg/2ml Vial SLOW IVP SCH (09:00)
[2020-02-18] MEDS: Vancomycin 1.5 GRAM/300 ML BAG 1.5 GM in Premix Bag 1 BAG IVPB SCH ×2 (10:36→17:38)
--- NOTE | 2020-02-18 15:14 | PDOC.HOSPP ---
- Subjective Encounter Date: 02/18/20 Encounter Time: 15:10 Subjective: f/u for sepsis and COVID-19 r/o currently receiving Cefepime/Vancomycin for suspected PNA. Pt feeling much better overall and no fever reported. - Objective Vital Signs & Weight: Vital Signs (12 hours) Temp Pulse Resp BP Pulse Ox 02/18/20 11:56 97.7 F 72 18 109/74 02/18/20 08:00 98.1 F 69 18 112/71 02/18/20 04:00 97.9 F 65 18 104/63 100 02/18/20 03:52 100 Weight Weight 256 lb 14.4 oz I&O: 02/17/20 02/18/20 02/19/20 06:59 06:59 06:59 Intake Total 313 Balance 313 Result Diagrams: 02/18/20 04:37 02/17/20 17:16 Additional Labs: Microbiology 02/17/20 18:23 Nasal swab Influenza Types A,B Direct EIA - Final 02/17/20 18:21 Urine voided Urine Culture - Preliminary NO GROWTH AT 12 HOURS 02/17/20 17:16 Venous blood - Right Hand Blood Culture - Preliminary Specimen has been received and culture in progress. No Growth to date. 02/17/20 17:16 Venous blood - Left Hand Blood Culture - Preliminary Specimen has been received and culture in progress. No Growth to date. Laboratory Tests 01/04/20 02/17/20 02/17/20 18:53 17:16 17:16 WBC 2.3 L Hgb 9.2 L Plt Count 72 L Neutrophils % (Manual) Band Neuts % (Manual) PT INR Sodium 135 L Lactic Acid 3.6 H Magnesium Total Bilirubin AST ALT Alkaline Phosphatase Lipase 02/17/20 02/17/20 02/18/20 17:16 20:09 04:37 WBC Hgb Plt Count Neutrophils % (Manual) 41 L Band Neuts % (Manual) 20 H PT INR Sodium Lactic Acid 1.2 Magnesium 1.4 L Total Bilirubin 2.4 H AST 202 H ALT 141 H Alkaline Phosphatase 146 H Lipase 46 02/18/20 04:37 WBC Hgb Plt Count Neutrophils % (Manual) Band Neuts % (Manual) PT 20.4 H INR 1.8 Sodium Lactic Acid Magnesium Total Bilirubin AST ALT Alkaline Phosphatase Lipase Radiology Reviewed by me: Yes (PCXR - patchy opacities in bilat galeas) EKG Reviewed by me: Yes (Tele - ) Hospitalist ROS - Medication Medications: Active Medications Generic Name Dose Route Start Last Admin Trade Name Alfredito PRN Reason Stop Dose Admin Famotidine 20 mg 02/18/20 09:00 02/18/20 08:46 Pepcid SLOW IVP 20 mg Q12HR PRAVEEN Administration Cefepime HCl 2 gm/ Sodium 100 mls @ 200 mls/hr 02/18/20 08:00 02/18/20 08:46 Chloride IVPB 100 mls 0800,2000 PRAVEEN Administration Azithromycin 500 mg/ Sodium 250 mls @ 250 mls/hr 02/18/20 00:15 02/18/20 04: 53 Chloride IVPB 250 mls Q24HR PRAVEEN Administration Sodium Chloride 1,000 mls @ 75 mls/hr 02/18/20 00:15 02/18/20 04:53 Normal Saline 0.9% IV Not Given .[id number] PRAVEEN Vancomycin HCl 1.5 gm/ Device 300 mls @ 200 mls/hr 02/18/20 08:00 02/18/20 10 :36 IVPB 300 mls 0800,1600,2359 PRAVEEN Administration - Exam General Appearance: NAD Eye: PERRL, anicteric sclera ENT: normocephalic atraumatic, no oropharyngeal lesions Neck: supple, symmetric, no JVD, no thyromegaly Heart: RRR, no murmur, no gallops, no rubs, normal peripheral pulses Heart - other findings: S1, S2 Respiratory: normal chest expansion, no tachypnea Respiratory - other findings: diminished in bases, occasional wheeze Gastrointestinal: soft, normal bowel sounds, distended Gastrointestinal - other findings: mild TTP Extremities: no cyanosis, no clubbing, no edema Skin: normal turgor, no lesions Neurological: cranial nerve grossly intact, no new deficit Musculoskeletal: normal tone, normal strength, no muscle wasting Psychiatric: normal affect, A&O x 3 Hosp A/P (1) Sepsis due to pneumonia Code(s): J18.9 - PNEUMONIA, UNSPECIFIED ORGANISM; A41.9 - SEPSIS, UNSPECIFIED ORGANISM Status: Acute Plan: Improved, continue Cefepime/Vancomycin and de-escalate coverage in the next 24h (2) Cholangiocarcinoma Code(s): C22.1 - INTRAHEPATIC BILE DUCT CARCINOMA Status: Chronic Plan: Continue outpt chemotherapy per medical oncology (3) Immunosuppressed due to chemotherapy Code(s): Z79.899 - OTHER GROUP HOME (CURRENT) DRUG THERAPY Status: Chronic (4) Hyponatremia Code(s): E87.1 - HYPO-OSMOLALITY AND HYPONATREMIA Status: Acute Plan: Continue IV NS @ 75ml/h, serial Na+ monitoring (5) Hypomagnesemia Code(s): E83.42 - HYPOMAGNESEMIA Status: Acute Plan: Magnesium supplementation, repeat Mg++ level in am (6) Transaminitis Code(s): R74.0 - NONSPEC ELEV OF LEVELS OF TRANSAMNS & LACTIC ACID DEHYDRGNSE Status: Chronic Plan: Secondary to cholangiocarcinoma, serial monitoring - Plan continue antibiotics, social media project manager, respiratory therapy, DVT proph w/SCDs Stable currently Continue Cefepime/Vancomycin Add Albuterol MDI Continue IVF NS @ 75ml/h COVID-19 r/o pending AM lab: CMP, CBC, Mg++, PO3
[2020-02-18] MEDS ORDERED: Albuterol Sulfate 2.5 mg/3 ml Neb NEB PRN (17:00)
[2020-02-18] MEDS: Dronabinol 2.5 MG CAP PO SCH (17:40)
[2020-02-18] MEDS ORDERED: PROVENTIL INHALER 6.7 G (200 INHALATIONS) INH PRN (19:15)
[2020-02-18] MEDS: Morphine 4 MG/ML VIAL SLOW IVP PRN (20:22)
[2020-02-18] MEDS: Famotidine 20 MG TAB PO SCH (20:33)
[2020-02-18] MEDS: Ibuprofen 200 MG TAB PO PRN (20:42)
[2020-02-18] MEDS ORDERED: Fentanyl 100 MCG/2 ML VIAL SLOW IVP PRN (21:45)
[2020-02-18] MEDS ORDERED: Dicyclomine 10 MG CAP PO PRN (23:46)
[2020-02-18] MEDS ORDERED: Ondansetron ODT 8 MG TAB PO PRN (23:51)
[2020-02-18 23:52] LABS: Vancomycin, Trough 13.9 ug/mL
[2020-02-19] MEDS: Vancomycin 1.5 GRAM/300 ML BAG 1.5 GM in Premix Bag 1 BAG IVPB SCH ×3 (00:01→18:55)
[2020-02-19] MEDS: Morphine 4 MG/ML VIAL SLOW IVP PRN ×2 (02:40→13:06)
[2020-02-19] MEDS: Azithromycin 500 MG in Sodium Chloride 0.9% 250 ML 250 ML IVPB SCH (02:52)
[2020-02-19 05:21] LABS: Phosphorus 2.2 mg/dL (2.3-4.7)
[2020-02-19 05:23] LABS: ALT (SGPT) 103 U/L (8-55); AST (SGOT) 125 U/L (5-34); Albumin 1.7 g/dL (3.5-5.0); Alkaline Phosphatase 115 U/L (40-110); Anion Gap 8 mmol/L (10-20); BUN (Urea Nitrogen) 11 mg/dL (8.4-25.7); Bilirubin, Total 1.6 mg/dL (0.2-1.2); Calc. Creatinine Clearance 174 mL/min (70-130); Carbon Dioxide 21 mmol/L (22-29); Chloride 108 mmol/L (98-107); Estimated GFR-MDRD Greater than 90; Globulin 4.5 g/dL (2.4-3.5); Glucose 154 mg/dL (70-105); Magnesium 1.7 mg/dL (1.6-2.6); Potassium 3.8 mmol/L (3.5-5.1); Protein, Total 6.2 g/dL (6.0-8.3); Sodium 133 mmol/L (136-145)
[2020-02-19 05:25] LABS: Anisocytosis SLIGHT = 6-15 cells (100X) (0-5/hpf); Band 15 % (5-11); Eosinophils 4 % (0-10); Hemoglobin 8.8 g/dL (14.0-18.0); Lymphocytes 28 % (21-51); MDiff Complete? YES; Mean Corpuscular HGB CONC 31.6 g/dL (32.0-36.0); Mean Corpuscular Hemoglobin 31.2 pg (27.0-31.0); Mean Corpuscular Volume 98.9 fL (78.0-98.0); Mean Platelet Volume 8.2 fL (7.4-10.4); Monocytes 12 % (0-10); Neutrophil 41 % (42-75); Platelet Count 58 thou/uL (130-400); Platelet Morphology Comment Appears Decreased; RBC Distribution Width 16.4 % (11.5-14.5); Red Blood Cell (RBC) Count 2.83 mill/uL (4.70-6.10); White Blood Cell (WBC) Count 3.6 thou/uL (4.8-10.8)
--- NOTE | 2020-02-19 09:19 | PDOC.HOSPP ---
- Subjective Encounter Date: 02/19/20 Encounter Time: 09:00 Subjective: f/u for sepsis due to PNA and COVID rule out. Feeling much better overall and minimal coughing. Fever spike last pm but none reported this am. - Objective Vital Signs & Weight: Vital Signs (12 hours) Temp Pulse Resp BP Pulse Ox 02/19/20 07:50 97.8 F 74 16 131/78 99 02/19/20 02:46 98.4 F 71 18 108/68 98 02/18/20 23:11 99.0 F 90 20 123/78 98 02/18/20 21:38 98.9 F Weight Weight 260 lb I&O: 02/18/20 02/19/20 02/20/20 06:59 06:59 06:59 Intake Total 313 3525 Output Total 850 Balance 313 2675 Result Diagrams: 02/19/20 04:49 02/19/20 04:49 Additional Labs: Microbiology 02/17/20 18:23 Nasal swab Influenza Types A,B Direct EIA - Final 02/17/20 18:21 Urine voided Urine Culture - Preliminary NO GROWTH AT 12 HOURS 02/17/20 17:16 Venous blood - Right Hand Blood Culture - Preliminary Specimen has been received and culture in progress. No Growth to date. 02/17/20 17:16 Venous blood - Left Hand Blood Culture - Preliminary Specimen has been received and culture in progress. No Growth to date. Laboratory Tests 01/04/20 02/17/20 02/17/20 18:53 17:16 17:16 WBC 2.3 L Hgb 9.2 L Plt Count 72 L Neutrophils % (Manual) Band Neuts % (Manual) PT INR Sodium 135 L Lactic Acid 3.6 H Phosphorus Magnesium Total Bilirubin AST ALT Alkaline Phosphatase Lipase COVID-19 PCR 02/17/20 02/17/20 02/18/20 17:16 20:09 00:47 WBC Hgb Plt Count Neutrophils % (Manual) Band Neuts % (Manual) PT INR Sodium Lactic Acid 1.2 Phosphorus Magnesium 1.4 L Total Bilirubin 2.4 H AST 202 H ALT 141 H Alkaline Phosphatase 146 H Lipase 46 COVID-19 PCR Not Detected 02/18/20 02/18/20 02/19/20 04:37 04:37 04:49 WBC 3.1 L Hgb 8.0 L Plt Count Neutrophils % (Manual) 41 L Band Neuts % (Manual) 20 H PT 20.4 H INR 1.8 Sodium Lactic Acid Phosphorus Magnesium 1.7 Total Bilirubin 1.6 H AST 125 H ALT 103 H Alkaline Phosphatase 115 H Lipase COVID-19 PCR 02/19/20 02/19/20 04:49 04:49 WBC Hgb Plt Count Neutrophils % (Manual) Band Neuts % (Manual) 15 H PT INR Sodium Lactic Acid Phosphorus 2.2 L Magnesium Total Bilirubin AST ALT Alkaline Phosphatase Lipase COVID-19 PCR EKG Reviewed by me: Yes (Tele - SR) Hospitalist ROS - Medication Medications: Active Medications Generic Name Dose Route Start Last Admin Trade Name Freq PRN Reason Stop Dose Admin Dronabinol 2.5 mg 02/18/20 16:30 02/18/20 17:40 Marinol PO 2.5 mg BID-AC PRAVEEN Administration Famotidine 20 mg 02/18/20 21:00 02/18/20 20:33 Pepcid PO 20 mg BID PRAVEEN Administration Cefepime HCl 2 gm/ Sodium 100 mls @ 200 mls/hr 02/18/20 08:00 02/18/20 20:32 Chloride IVPB 100 mls 0800,2000 PRAVEEN Administration Azithromycin 500 mg/ Sodium 250 mls @ 250 mls/hr 02/18/20 00:15 02/19/20 02: 52 Chloride IVPB 250 mls Q24HR PRAVEEN Administration Sodium Chloride 1,000 mls @ 75 mls/hr 02/18/20 00:15 02/18/20 21:38 Normal Saline 0.9% IV 1,000 mls .[id number] PRAVEEN Administration Vancomycin HCl 1.5 gm/ Device 300 mls @ 200 mls/hr 02/18/20 08:00 02/19/20 00 :01 IVPB 300 mls 0800,1600,2359 PRAVEEN Administration Ibuprofen 200 mg 02/18/20 00:31 02/18/20 20:42 Motrin PO 200 mg Q4H PRN Administration Fever > 101 Morphine Sulfate 4 mg 02/18/20 16:47 02/19/20 02:40 Morphine SLOW IVP 4 mg Q4H PRN Administration Pain - Exam General Appearance: NAD, awake alert Eye: PERRL, anicteric sclera ENT: normocephalic atraumatic, no oropharyngeal lesions Neck: supple, symmetric, no JVD, no thyromegaly, no lymphadenopathy Heart: RRR, no murmur, no gallops, no rubs, normal peripheral pulses Respiratory: CTAB, no wheezes, no rales, normal chest expansion Gastrointestinal: soft, non-tender, non-distended, normal bowel sounds Extremities: no cyanosis, no clubbing, no edema Skin: normal turgor, no lesions Neurological: cranial nerve grossly intact, no new deficit Musculoskeletal: normal tone, normal strength, no muscle wasting Psychiatric: normal affect, A&O x 3 Hosp A/P (1) Sepsis due to pneumonia Code(s): J18.9 - PNEUMONIA, UNSPECIFIED ORGANISM; A41.9 - SEPSIS, UNSPECIFIED ORGANISM Status: Acute Plan: Improved, continue Cefepime/Vancomycin/Zithromax another 24h then de-escalate (2) Cholangiocarcinoma Code(s): C22.1 - INTRAHEPATIC BILE DUCT CARCINOMA Status: Chronic Plan: Resume outpt chemotherapy after d/c (3) Immunosuppressed due to chemotherapy Code(s): Z79.899 - OTHER MANAGER NEONATAL (CURRENT) DRUG THERAPY Status: Chronic (4) Hyponatremia Code(s): E87.1 - HYPO-OSMOLALITY AND HYPONATREMIA Status: Acute Plan: Improved, Mild hyponatremia likely due to cholangiocarcinoma, continue low- volume IVF's (5) Hypomagnesemia Code(s): E83.42 - HYPOMAGNESEMIA Status: Acute Plan: Improved, continue serial monitoring (6) Transaminitis Code(s): R74.0 - NONSPEC ELEV OF LEVELS OF TRANSAMNS & LACTIC ACID DEHYDRGNSE Status: Chronic Plan: Secondary to cholangiocarcinoma, stable trend - Plan continue antibiotics, social and political studies professor, out of bed/ambulate, DVT proph w/SCDs Stable currently Continue Cefepime/Vancomycin/Zithromax Add Albuterol MDI Continue IVF NS @ 75ml/h COVID-19 ruled out Transfer to medical floor AM lab: CMP, CBC, Mg++, PO3 Likely home in am
[2020-02-19] MEDS: Famotidine 20 MG TAB PO SCH ×2 (10:12→21:37)
[2020-02-19] MEDS: Cefepime 2 GM in Sodium Chloride 0.9% 100 ML IVPB SCH ×2 (11:43→21:35)
[2020-02-19] MEDS: Dronabinol 2.5 MG CAP PO SCH ×2 (11:43→17:53)
[2020-02-19] MEDS: Ibuprofen 200 MG TAB PO PRN (11:48)
[2020-02-19 14:15] VITALS: BMI 34.2
[2020-02-20] MEDS: Azithromycin 500 MG in Sodium Chloride 0.9% 250 ML 250 ML IVPB SCH (00:39)
[2020-02-20] MEDS: Vancomycin 1.5 GRAM/300 ML BAG 1.5 GM in Premix Bag 1 BAG IVPB SCH ×2 (02:47→08:30)
[2020-02-20 06:04] LABS: Hemoglobin 8.7 g/dL (14.0-18.0); Mean Corpuscular HGB CONC 32.8 g/dL (32.0-36.0); Mean Corpuscular Hemoglobin 31.6 pg (27.0-31.0); Mean Corpuscular Volume 96.2 fL (78.0-98.0); Mean Platelet Volume 10.8 fL (7.4-10.4); Platelet Count 132 thou/uL (130-400); RBC Distribution Width 16.1 % (11.5-14.5); Red Blood Cell (RBC) Count 2.77 mill/uL (4.70-6.10); White Blood Cell (WBC) Count 3.2 thou/uL (4.8-10.8)
[2020-02-20 06:07] LABS: Band 14 % (5-11); Eosinophils 5 % (0-10); Lymphocytes 19 % (21-51); MDiff Complete? YES; Monocytes 18 % (0-10); Neutrophil 44 % (42-75)
[2020-02-20 07:08] LABS: ALT (SGPT) 117 U/L (8-55); AST (SGOT) 190 U/L (5-34); Albumin 1.7 g/dL (3.5-5.0); Alkaline Phosphatase 139 U/L (40-110); Anion Gap 10 mmol/L (10-20); BUN (Urea Nitrogen) 11 mg/dL (8.4-25.7); Bilirubin, Total 1.7 mg/dL (0.2-1.2); Calc. Creatinine Clearance 198 mL/min (70-130); Calcium 7.4 mg/dL (7.8-10.44); Carbon Dioxide 21 mmol/L (22-29); Chloride 109 mmol/L (98-107); Estimated GFR-MDRD Greater than 90; Globulin 4.9 g/dL (2.4-3.5); Glucose 87 mg/dL (70-105); Magnesium 1.6 mg/dL (1.6-2.6); Phosphorus 2.8 mg/dL (2.3-4.7); Potassium 4.2 mmol/L (3.5-5.1); Protein, Total 6.6 g/dL (6.0-8.3); Sodium 136 mmol/L (136-145)
[2020-02-20] MEDS: Sodium Chloride 0.9% 1,000 ML IV SCH ×2 (08:27→08:31)
[2020-02-20] MEDS: Cefepime 2 GM in Sodium Chloride 0.9% 100 ML IVPB SCH (08:27)
[2020-02-20] MEDS: Famotidine 20 MG TAB PO SCH (08:30)
[2020-02-20] MEDS: Dronabinol 2.5 MG CAP PO SCH (08:32)
[2020-02-20 09:14] LABS: Vancomycin, Trough 17.2 ug/mL
--- NOTE | 2020-02-20 10:24 | DIS ---
DATE OF ADMISSION: 02/18/2020 DATE OF DISCHARGE: 02/20/2020 DISCHARGE DIAGNOSES: 1. Sepsis secondary to community-acquired pneumonia, likely gram-positive cocci, resolving. 2. Cholangiocarcinoma with current chemotherapy. 3. Immunosuppression due to chemotherapy. 4. Hyponatremia, resolved. 5. Hypomagnesemia, resolved. 6. Transaminitis secondary to cholangiocarcinoma. CONSULTATIONS: None. PERTINENT LABORATORY AND X-RAY FINDINGS: Sodium ranged between 127 to 136. Lactic acid level ranged between 1.2 to 3.6. Phosphorus ranged between 2.2 to 2.8. Magnesium ranged between 1.4 to 1.7. Total bilirubin ranged between 1.6 to 2.4. AST ranged between 125 to 202, ALT ranged between 103 to 141. CBC showed a white blood cell count ranged between 2.3 to 3.6, hemoglobin ranged between 8.0 to 9.2. PT 20.4, INR 1.8. COVID-19 PCR negative on 02/18/2020. Blood cultures x2 dated 02/17/2020, showed no growth at 48 hours. Urine culture dated 02/17/2020, showed no growth at 36 hours. Influenza A and B antigen negative on 02/17/2020. Portable chest x-ray dated 02/17/2020, patchy densities in bilateral lung bases. Abdominal radiographs dated 02/17/2020, showed no evidence for bowel obstruction. Cholelithiasis noted. HOSPITAL COURSE: The patient was initially admitted after presenting with abdominal pain and generalized weakness. The patient was also noted febrile with an initial temperature of 103 degrees Fahrenheit. The patient met sepsis criteria in the emergency room and received general sepsis protocol including IV fluid hydration and initiation of broad-spectrum IV antibiotic therapy with cefepime and vancomycin in the context of immunosuppression as the patient is currently on chemotherapy for cholangiocarcinoma. The patient was also placed in initial respiratory isolation due to concern for COVID-19. The patient was subsequently ruled out for the COVID-19 and continued on broad-spectrum IV antibiotic therapy for the remainder of the hospital course. The patient rapidly clinically improved in 48 hours, remaining afebrile with stabilization of metabolic panels. I have examined the patient at the time of discharge and discussed followup instructions. The patient verbalized understanding and in agreement and ready for discharge on 02/20/2020. DISCHARGE MEDICATIONS: 1. Levaquin 750 mg p.o. daily x7 days. 2. Marinol 2.5 mg p.o. b.i.d. 3. Lactobacillus one tablet p.o. daily. 4. Olanzapine 10 mg p.o. at bedtime. 5. Zofran 8 mg p.o. q.8 hours p.r.n. nausea and vomiting. 6. ProAir HFA 2 puffs inhaled q.6 hours p.r.n. FOLLOWUP: The patient may follow up with Dr. Sterling within 7 days of discharge. The patient will follow up with his Medical Oncology Team at [facility] in [place], [place]. CONDITION ON DISCHARGE: Stable. ACTIVITY: Ad-chung. DIET: Regular. CODE STATUS: Full. DISPOSITION: Home on 02/20/2020. TIME SPENT: Total time preparing and coordinating discharge, 31 minutes. Job ID: [id number]
[2020-02-20 10:56] VITALS: BP 126/80; TEMP 98.3
== END 2020-02-20 11:11 | disposition home or self-care (01) | DRG 871 ==
LOC: ERS 17:00 → EEVIPCON 02-18 00:23 → 2SW 02-18 00:23 → T4-B 02-19 21:13
PROVIDERS: ADMIT Internal Medicine; ATTEND Internal Medicine
DX: A41.9 Sepsis, unspecified organism (principal); J18.9 Pneumonia, unspecified organism; C22.1 Intrahepatic bile duct carcinoma; E87.1 Hypo-osmolality and hyponatremia; E83.42 Hypomagnesemia; J45.909 Unspecified asthma, uncomplicated; F17.210 Nicotine dependence, cigarettes, uncomplicated; R73.9 Hyperglycemia, unspecified; R74.0 Nonspecific elevation of levels of transaminase and lactic acid dehydrogenase [LDH]; Z88.0 Allergy status to penicillin; Z88.8 Allergy status to other drugs, medicaments and biological substances
CPT/HCPCS: 36415; 71045; 74019; 80053; 80202; 81003; 81015; 82805; 83605; 83690; 83735; 84100; 85007; 85025; 85027; 85610; 87040; 87086; 87804; 93005; 94760; 96365; 96366; 96367; 96375; J0456; J0692; J1956; J2270; J2405; J3010; J3475; J3490; J7050; Q0167; S0028; U0001

== ENCOUNTER 2020-02-24 18:33 | Observation (INO) | payer OTHER ==
[2020-02-24 19:22] LABS: #Basophils 0.1 thou/uL (0.0-0.2); #Eosinphils 0.2 thou/uL (0.0-0.7); #Lymphocytes 1.5 thou/uL (1.20-3.40); #Monocytes 0.8 thou/uL (0.11-0.59); #Neutrophils 3.3 thou/uL (1.40-6.50); %Eosinophils 3.7 % (0.0-10.0); %Lymphocytes 25.6 % (21.0-51.0); %Monocytes 13.5 % (0.0-10.0); %Neutrophils 56.2 % (42.0-75.0); Mean Corpuscular HGB CONC 32.1 g/dL (32.0-36.0); Mean Corpuscular Hemoglobin 31.2 pg (27.0-31.0); Mean Corpuscular Volume 97.3 fL (78.0-98.0); Mean Platelet Volume 10.2 fL (7.4-10.4); Platelet Count 155 thou/uL (130-400); RBC Distribution Width 15.9 % (11.5-14.5); Red Blood Cell (RBC) Count 2.87 mill/uL (4.70-6.10); White Blood Cell (WBC) Count 5.9 thou/uL (4.8-10.8)
[2020-02-24 19:43] LABS: ALT (SGPT) 121 U/L (8-55); AST (SGOT) 258 U/L (5-34); Albumin 1.6 g/dL (3.5-5.0); Alkaline Phosphatase 169 U/L (40-110); Anion Gap 9 mmol/L (10-20); BUN (Urea Nitrogen) 14 mg/dL (8.4-25.7); Bilirubin, Total 1.7 mg/dL (0.2-1.2); CK (CPK) 90 U/L (30-200); Calc. Creatinine Clearance 0 mL/min (70-130); Calcium 7.6 mg/dL (7.8-10.44); Carbon Dioxide 24 mmol/L (22-29); Chloride 106 mmol/L (98-107); Estimated GFR-MDRD 88; Globulin 5.4 g/dL (2.4-3.5); Glucose 99 mg/dL (70-105); Sodium 135 mmol/L (136-145)
--- NOTE | 2020-02-24 19:48 | RAD ---
PORTABLE CHEST: 02/24/20 HISTORY: Swelling. Shortness of breath. COMPARISON: 02/17/20 exam. Heart size is slightly enlarged. Right sided Mediport catheter is present. The lungs are clear of inf iltrates. IMPRESSION: Mild cardiomegaly. No signs of failure. POS: JAE
[2020-02-24 20:05] LABS: CKMB 1.6 ng/mL (0-6.6)
[2020-02-24 20:20] LABS: Bilirubin 1+ (Negative); Blood, Urine Negative (Negative); Clarity Turbid (Clear); Glucose, Urine (Dipstick) Normal (Negative); Leukocyte Negative Leu/uL (Negative); Nitrite Negative (Negative); Protein, Urine (Dipstick) 50 mg/dL (Neg-Trace)
[2020-02-24 20:21] LABS: RBC/HPF 0-3 HPF (0-3); Squamous Epithelial 0-3 HPF (0-3)
[2020-02-24 20:25] LABS: Bacteria/HPF 1+ HPF (None Seen)
[2020-02-24 20:26] LABS: Mucous/LPF 3+ LPF (<2+)
[2020-02-24] MEDS ORDERED: PROVENTIL INHALER 6.7 G (200 INHALATIONS) INH PRN (20:48)
[2020-02-24] MEDS ORDERED: Furosemide 20 MG/2 ML VIAL SLOW IVP SCH (21:00)
[2020-02-24] MEDS ORDERED: Aspirin Chewable 81 MG TAB ONE (21:00)
--- NOTE | 2020-02-24 21:06 | HP ---
CHIEF COMPLAINT: Leg swelling. HISTORY OF PRESENT ILLNESS: Mr. Bolanos is a 54-year-old male with past medical history of cholangiocarcinoma, on chemotherapy, presents to the emergency room with worsening bilateral leg swelling and shortness of breath. The patient was just recently discharged from the hospital last week after being treated for sepsis and possible pneumonia. The patient denies fever, chills, chest pain, nausea, vomiting, or diarrhea. Workup in the emergency room, the patient had indeterminate troponin of 0.06, mildly elevated BNP of 155. Shows transaminitis, albumin is low. Clinically, patient had significant bilateral leg swelling. The patient is being admitted to hospital for further management. PAST MEDICAL HISTORY: 1. Cholangiocarcinoma. 2. Asthma. PAST SURGICAL HISTORY: 1. Right knee surgery. 2. Tonsillectomy. FAMILY HISTORY: Reviewed and noncontributory. SOCIAL HISTORY: The patient use medical cannabis. Denies alcohol use. Smokes cigarettes daily. HOME MEDICATIONS: Please see home medication reconciliation form for updated medications. ALLERGIES: THE PATIENT IS ALLERGIC TO PENICILLIN. REVIEW OF SYSTEMS: Review of 14 systems negative except what is mentioned in history of present illness. PHYSICAL EXAMINATION: GENERAL: The patient is awake, alert, in mild distress. VITAL SIGNS: Blood pressure is 129/75, pulse is 87, respiratory rate is 14, oxygen saturation is 99% on room air. HEAD AND NECK: Normocephalic, atraumatic. Neck is supple. No JVD. CHEST: Decreased air entry bilaterally. HEART: S1, S2. Regular. ABDOMEN: Soft, nontender. Bowel sounds present. NEUROLOGIC: Awake, alert, and oriented x3. PSYCHIATRIC: Normal mood. EXTREMITIES: 3+ edema. GENITOURINARY: No suprapubic tenderness. No flank tenderness. LABORATORY DATA: As mentioned above in history of present illness. Chest x-ray shows mild cardiomegaly. ASSESSMENT AND PLAN: 1. Bilateral leg swelling. 2. Shortness of breath. 3. Mildly elevated BNP. 4. Indeterminate troponin. 5. Cholangiocarcinoma, on chemotherapy. 6. Asthma. PLAN: 1. Admit. 2. Serial troponins. 3. 2D echo, the patient has been on chemotherapy, having mildly elevated BNP and leg swelling, to assess cardiac function. 4. We will give the patient one dose of Lasix tonight, reassess in a.m. 5. Reconcile home medications. 6. DVT prophylaxis as appropriate. 7. Expected length of stay, 1 midnight if the patient is stable and further workup negative. Job ID: [id number]
[2020-02-24] MEDS ORDERED: Ondansetron ODT 4 MG TAB SL PRN (21:41)
[2020-02-24] MEDS ORDERED: Ondansetron PF 4 MG/2 ML Vial IVP PRN (21:41)
[2020-02-24] MEDS: Furosemide 20 MG/2 ML VIAL SLOW IVP SCH ×2 (22:20→22:21)
[2020-02-24 23:39] LABS: Troponin I 0.069 ng/mL (< 0.028)
[2020-02-25 02:19] LABS: #Eosinphils 0.2 thou/uL (0.0-0.7); #Lymphocytes 1.4 thou/uL (1.20-3.40); #Monocytes 0.7 thou/uL (0.11-0.59); #Neutrophils 2.6 thou/uL (1.40-6.50); %Basophils 0.5 % (0.0-1.0); %Eosinophils 3.7 % (0.0-10.0); %Lymphocytes 29.3 % (21.0-51.0); %Monocytes 13.5 % (0.0-10.0); %Neutrophils 53.1 % (42.0-75.0); Hemoglobin 8.7 g/dL (14.0-18.0); Mean Corpuscular HGB CONC 32.3 g/dL (32.0-36.0); Mean Corpuscular Hemoglobin 31.3 pg (27.0-31.0); Mean Platelet Volume 10.5 fL (7.4-10.4); Platelet Count 131 thou/uL (130-400); RBC Distribution Width 15.7 % (11.5-14.5); Red Blood Cell (RBC) Count 2.78 mill/uL (4.70-6.10); White Blood Cell (WBC) Count 4.8 thou/uL (4.8-10.8)
[2020-02-25 02:42] LABS: Troponin I 0.087 ng/mL (< 0.028)
[2020-02-25 02:43] LABS: ALT (SGPT) 118 U/L (8-55); AST (SGOT) 254 U/L (5-34); Albumin 1.6 g/dL (3.5-5.0); Alkaline Phosphatase 167 U/L (40-110); Anion Gap 9 mmol/L (10-20); BUN (Urea Nitrogen) 14 mg/dL (8.4-25.7); Bilirubin, Total 1.5 mg/dL (0.2-1.2); Calc. Creatinine Clearance 162 mL/min (70-130); Calcium 7.8 mg/dL (7.8-10.44); Carbon Dioxide 25 mmol/L (22-29); Chloride 108 mmol/L (98-107); Estimated GFR-MDRD 89; Globulin 5.1 g/dL (2.4-3.5); Glucose 112 mg/dL (70-105); Potassium 4.2 mmol/L (3.5-5.1); Protein, Total 6.7 g/dL (6.0-8.3); Sodium 138 mmol/L (136-145)
[2020-02-25 05:51] VITALS: BMI 34.2
[2020-02-25 11:13] VITALS: TEMP 98.1
[2020-02-25 15:29] VITALS: BP 132/73
--- NOTE | 2020-02-25 18:34 | DIS ---
DATE OF ADMISSION: 02/24/2020 DATE OF DISCHARGE: 02/25/2020 PRIMARY CARE PROVIDER: Dr. Criss Sterling. The patient left against medical advice on February 25, 2020. HOSPITAL COURSE: Mr. Bolanos is a pleasant 54-year-old gentleman, who was admitted to [facility] on February 24, 2020 for lower extremity swelling. Please refer to Dr. Hoff's history and physical note, dated February 24, 2020 for further details. He had 2D echocardiogram, which showed left ventricular ejection fraction of 55% to 60%. The patient did not wish to stay in the hospital and left against medical advice. Job ID: [id number]
--- NOTE | 2020-02-28 13:56 | EKG ---
Test Reason : Blood Pressure : / mmHG Vent. Rate : 078 BPM Atrial Rate : 078 BPM P-R Int : 158 ms QRS Dur : 082 ms QT Int : 400 ms P-R-T Axes : 033 -03 022 degrees QTc Int : 456 ms Normal sinus rhythm Normal ECG Confirmed by AZEEM MORRELL DO ([id number]), film editor supervisor LENKA ALLEN ([id number] on 02/28/2020 1:55:41 PM Referred By: Confirmed By:AZEEM MORRELL DO
== END 2020-02-25 18:10 | disposition left against medical advice (07) ==
LOC: ERS 18:33 → 2SW 20:21
PROVIDERS: ADMIT Internal Medicine; ATTEND Internal Medicine
DX: M79.89 Other specified soft tissue disorders (principal); R06.02 Shortness of breath; C22.1 Intrahepatic bile duct carcinoma; J45.909 Unspecified asthma, uncomplicated; F17.210 Nicotine dependence, cigarettes, uncomplicated; Z53.29 Procedure and treatment not carried out because of patient's decision for other reasons; Z88.0 Allergy status to penicillin; Z91.041 Radiographic dye allergy status
CPT/HCPCS: 36415; 71045; 80053; 81003; 81015; 82550; 82553; 83880; 84484; 85025; 93005; 93306; 96374; 99406; G0378; J1940